=== PATIENT | female | born 1995 | race Two or more races ===

== ENCOUNTER 2023-05-22 09:41 | Observation (INO) | payer MEDICAID, OTHER ==
[~2023-05-22] VITALS: Ht 157.5 cm; Wt 61.2 kg
[2023-05-22 11:53] LABS: Urine Bacteria FEW /hpf (None Seen); Urine Blood Negative /uL (Negative); Urine Clarity HAZY (Clear); Urine Color Yellow (Yellow); Urine Protein, UAD 1+ (Negative); Urine Specific Gravity 1.025 (1.001-1.035); Urine Urobilinogen Normal (Negative); Urine WBC 4 /hpf (0 - 5)
[2023-05-22 12:04] LABS: Basophils # (auto) 0 10 ^3/uL (0-0.2); Eosinophils # (auto) 0.1 10 ^3/uL (0-0.8); Hemoglobin 10.9 g/dL (12.2-16.2); Monocytes # (auto) 0.4 10 ^3/uL (0-1.3); Neutrophils # (auto) 5.2 10 ^3/uL (1.6-8.6)
[2023-05-22 12:05] LABS: Basophils % (auto) 0.4 % (0.0-2.0); Eosinophils % (auto) 0.8 % (0.0-7.0); Hematocrit 34.1 % (36.0-46.0); Lymphocytes # (auto) 1.5 10 ^3/uL (0.4-5.4); Lymphocytes % (auto) 20.4 % (10.0-50.0); Mean Corpuscular Hemoglobin 26.4 pg (28.0-32.0); Mean Corpuscular Hgb Conc. 31.9 g/dL (32.0-36.0); Mean Corpuscular Volume 82.8 fL (80.0-100.0); Monocytes % (auto) 5.7 % (0.0-12.0); Neutrophils % (auto) 72.7 % (37.0-80.0); Nucleated Red Blood Cells % 0.2 %; Red Blood Cells 4.12 10^6/uL (4.0-5.20); Red Cell Distribution Width 17.3 % (11.8-14.3); White Blood Cell 7.2 10^3/uL (4.4-10.8)
[2023-05-22 12:22] LABS: Protein, Urine 84.6 mg/dL (0.0-11.9); Urine Protein/Creatinine Ratio 0.55
[2023-05-22 12:29] LABS: INR 0.9 (0.9-1.15); Partial Thromboplastin Time 30.5 SEC (24.5-34.5); Prothrombin Time 9.5 sec (9.3-11.8)
[2023-05-22 12:38] LABS: Albumin 2.5 g/dL (3.4-5.0); Calcium 7.9 mg/dL (8.5-10.1); Potassium 3.9 mmol/L (3.5-5.1)
[2023-05-22 12:43] LABS: BUN/Creatinine Ratio 17.2 (10.0-20.0); Bilirubin, Total 0.2 mg/dL (0.2-1.0); Total Protein 6.5 g/dL (6.4-8.2); Uric Acid 4.4 mg/dL (2.6-6.0)
== END 2023-05-22 13:05 | disposition home or self-care (01) ==
LOC: LDRP 09:41 → UNDOADMOB 09:41 → LDRP 09:43
PROVIDERS: ADMIT Obstetrics & Gynecology; ATTEND Obstetrics & Gynecology
DX: O48.0 Post-term pregnancy (principal); Z3A.40 40 weeks gestation of pregnancy; Z79.899 Other long term (current) drug therapy
CPT/HCPCS: 36415; 59025; 76818; 80053; 81001; 81002; 82570; 84156; 84550; 85025; 85379; 85610; 85730; 94760; G0378

== ENCOUNTER 2023-05-24 09:48 | Observation (INO) | payer MEDICAID ==
[2023-05-24] MEDS ORDERED: PREN-96 PO (10:43)
== END 2023-05-24 11:59 | disposition home or self-care (01) ==
LOC: LDRP 09:48
PROVIDERS: ADMIT Obstetrics & Gynecology; ATTEND Obstetrics & Gynecology
DX: O48.0 Post-term pregnancy (principal); Z3A.40 40 weeks gestation of pregnancy
CPT/HCPCS: 59025; 76818; 81002; G0378

== ENCOUNTER 2023-05-26 08:59 | Observation (INO) | payer MEDICAID ==
[~2023-05-26 08:59] MED LIST: PREN-96 PO
[2023-05-26 13:13] LABS: Basophils # (auto) 0 10 ^3/uL (0-0.2); Eosinophils # (auto) 0.1 10 ^3/uL (0-0.8); Eosinophils % (auto) 1.1 % (0.0-7.0); Hemoglobin 11.4 g/dL (12.2-16.2); Lymphocytes # (auto) 1.5 10 ^3/uL (0.4-5.4); Monocytes # (auto) 0.5 10 ^3/uL (0-1.3); Monocytes % (auto) 6.8 % (0.0-12.0)
[2023-05-26 13:14] LABS: Basophils % (auto) 0.6 % (0.0-2.0); Hematocrit 34.7 % (36.0-46.0); Lymphocytes % (auto) 22.4 % (10.0-50.0); Mean Corpuscular Hgb Conc. 32.8 g/dL (32.0-36.0); Mean Corpuscular Volume 82.3 fL (80.0-100.0); Neutrophils # (auto) 4.7 10 ^3/uL (1.6-8.6); Neutrophils % (auto) 69.1 % (37.0-80.0); Nucleated Red Blood Cells % 0.3 %; Red Blood Cells 4.22 10^6/uL (4.0-5.20); Red Cell Distribution Width 17.5 % (11.8-14.3); White Blood Cell 6.7 10^3/uL (4.4-10.8)
[2023-05-26 13:27] LABS: Urine Bacteria FEW /hpf (None Seen); Urine Blood Negative /uL (Negative); Urine Clarity Clear (Clear); Urine Color Yellow (Yellow); Urine Protein, UAD 1+ (Negative); Urine Specific Gravity 1.017 (1.001-1.035); Urine Urobilinogen Normal (Negative); Urine WBC 5 /hpf (0 - 5)
[2023-05-26 13:27] LABS: INR 0.89 (0.9-1.15); Partial Thromboplastin Time 30.2 SEC (24.5-34.5); Prothrombin Time 9.4 sec (9.3-11.8)
[2023-05-26 13:43] LABS: Albumin 2.6 g/dL (3.4-5.0); Potassium 4.1 mmol/L (3.5-5.1)
[2023-05-26 13:45] LABS: BUN/Creatinine Ratio 19.2 (10.0-20.0)
[2023-05-26 13:47] LABS: Bilirubin, Total 0.1 mg/dL (0.2-1.0); Total Protein 6.7 g/dL (6.4-8.2)
[2023-05-26 14:32] LABS: Barbiturate Scree,Urine NEGATIVE (NEGATIVE); Benzodiazephine Screen, Urine NEGATIVE (NEGATIVE); Cannabinoid Screen, Urine NEGATIVE (NEGATIVE); Cocaine Screen, Urine NEGATIVE (NEGATIVE); Opiate Scree,Urine NEGATIVE (NEGATIVE)
[2023-05-26 14:58] LABS: Alcohol, Urine < 3.0 mg/dL (0-10); Amphetamine Screen, Urine NEGATIVE (NEGATIVE); Phencyclidine Screen, Urine NEGATIVE (NEGATIVE)
[2023-05-26 15:15] LABS: Uric Acid 3.7 mg/dL (2.6-6.0)
[2023-05-26 16:57] LABS: Protein, Urine 57.5 mg/dL (0.0-11.9); Urine Protein/Creatinine Ratio 0.65
== END 2023-05-26 15:07 | disposition home or self-care (01) ==
LOC: UNDOADMOB 08:59 → LDRP 08:59
PROVIDERS: ADMIT Obstetrics & Gynecology; ATTEND Obstetrics & Gynecology
DX: O48.0 Post-term pregnancy (principal); Z3A.40 40 weeks gestation of pregnancy
CPT/HCPCS: 36415; 59025; 76818; 80053; 80307; 81001; 81002; 82570; 84156; 84550; 85025; 85610; 85730

== ENCOUNTER 2023-05-27 06:50 | Inpatient (IN) | payer MEDICAID ==
[~2023-05-27] VITALS: Ht 157.5 cm; Wt 72.6 kg
[2023-05-27] MEDS ORDERED: LIDOCAINE 2%HCL (LOCAL ANESTH.) INJ 20ML MDV IJ PRN (07:30)
[2023-05-27] MEDS ORDERED: WITCH HAZEL-GLYCERIN PAD TOP PRN (07:30)
[2023-05-27] MEDS ORDERED: PROMETHAZINE HCL 25 MG/ML 1ML IV PRN (07:30)
[2023-05-27] MEDS ORDERED: PROMETHAZINE HCL 25 MG/ML 1ML IM PRN (07:30)
[2023-05-27] MEDS ORDERED: DERMOPLAST 60ML BOTTLE TOP PRN (07:30)
[2023-05-27] MEDS ORDERED: PHISODERM TOP SOLN 240ML BTL TOP PRN (07:30)
[2023-05-27] MEDS ORDERED: miSOPROStol 50 MCG per PRE-CUT 1/2 TAB PO PRN (07:30)
[2023-05-27 07:54] LABS: Eosinophils # (auto) 0.1 10 ^3/uL (0-0.8); Eosinophils % (auto) 1.7 % (0.0-7.0); Mean Corpuscular Volume 81.9 fL (80.0-100.0); Monocytes # (auto) 0.4 10 ^3/uL (0-1.3); Neutrophils # (auto) 4.3 10 ^3/uL (1.6-8.6)
[2023-05-27 07:56] LABS: Basophils # (auto) 0 10 ^3/uL (0-0.2); Basophils % (auto) 0.4 % (0.0-2.0); Hematocrit 33.8 % (36.0-46.0); Hemoglobin 11.2 g/dL (12.2-16.2); Lymphocytes # (auto) 1.7 10 ^3/uL (0.4-5.4); Lymphocytes % (auto) 25.5 % (10.0-50.0); Mean Corpuscular Hemoglobin 27.2 pg (28.0-32.0); Mean Corpuscular Hgb Conc. 33.2 g/dL (32.0-36.0); Monocytes % (auto) 6.1 % (0.0-12.0); Neutrophils % (auto) 66.3 % (37.0-80.0); Nucleated Red Blood Cells % 0.1 %; Red Blood Cells 4.12 10^6/uL (4.0-5.20); Red Cell Distribution Width 17.3 % (11.8-14.3); White Blood Cell 6.5 10^3/uL (4.4-10.8)
[2023-05-27 08:08] LABS: INR 0.89 (0.9-1.15); Partial Thromboplastin Time 29.8 SEC (24.5-34.5); Prothrombin Time 9.4 sec (9.3-11.8)
[2023-05-27 08:11] LABS: Urine Bacteria NONE SEEN /hpf (None Seen); Urine Blood Negative /uL (Negative); Urine Clarity Clear (Clear); Urine Color Yellow (Yellow); Urine Protein, UAD 1+ (Negative); Urine Specific Gravity 1.019 (1.001-1.035); Urine Urobilinogen Normal (Negative); Urine WBC 1 /hpf (0 - 5)
[2023-05-27 08:14] LABS: Albumin 2.5 g/dL (3.4-5.0); Calcium 8.1 mg/dL (8.5-10.1); Potassium 3.9 mmol/L (3.5-5.1)
[2023-05-27 08:15] LABS: Alcohol, Urine < 3.0 mg/dL (0-10); Amphetamine Screen, Urine NEGATIVE (NEGATIVE); Barbiturate Scree,Urine NEGATIVE (NEGATIVE); Benzodiazephine Screen, Urine NEGATIVE (NEGATIVE); Cannabinoid Screen, Urine NEGATIVE (NEGATIVE); Cocaine Screen, Urine NEGATIVE (NEGATIVE); Opiate Scree,Urine NEGATIVE (NEGATIVE); Phencyclidine Screen, Urine NEGATIVE (NEGATIVE)
[2023-05-27 08:19] LABS: BUN/Creatinine Ratio 16.9 (10.0-20.0); Bilirubin, Total 0.2 mg/dL (0.2-1.0); Total Protein 6.4 g/dL (6.4-8.2)
[2023-05-27] MEDS: LACTATED RINGER'S 1,000 ML IV SCH ×2 (08:20→11:50)
[2023-05-27] MEDS ORDERED: LACT. RINGERS/OXYTOCIN 20UNITS 500 ML IV ONE ×2 (13:30→14:00)
[2023-05-27] MEDS ORDERED: LACT. RINGERS/OXYTOCIN 20UNITS 1,000 ML IV SCH (13:30)
[2023-05-27] MEDS ORDERED: ROPIVACAINE HCL 200 ML EPI SCH ×2 (15:00→15:30)
[2023-05-27] MEDS ORDERED: ePHEDrine SULFATE 50 MG/ML AMP IV ONE ×2 (15:00→15:30)
[2023-05-27] MEDS ORDERED: LACTATED RINGER'S 1,000 ML IV ONE (15:00)
[2023-05-27] MEDS ORDERED: NALOXONE HCL 0.4 MG/ML VIAL IV ONE ×2 (15:00→15:30)
[2023-05-27] MEDS ORDERED: fentaNYL CITRATE 100 MCG/2 ML VL IV ONE ×2 (15:00→15:30)
[2023-05-27] MEDS ORDERED: NALOXONE HCL 0.4 MG/ML VIAL ONE (15:03)
[2023-05-27] MEDS ORDERED: ePHEDrine SULFATE 50 MG/ML AMP ONE (15:03)
[2023-05-27] MEDS ORDERED: ROPIVACAINE HCL 200 ML ONE (15:03)
[2023-05-27] MEDS ORDERED: fentaNYL CITRATE 100 MCG/2 ML VL ONE (15:03)
[2023-05-27] MEDS ORDERED: ONDANSETRON ODT 4 MG TAB PO PRN (17:30)
[2023-05-27] MEDS ORDERED: IBUPROFEN 600 MG TAB PO PRN (17:30)
[2023-05-27] MEDS ORDERED: ACETAMINOPHEN 325 MG TAB PO PRN (17:30)
[2023-05-27 19:07] VITALS: BP_SYST 118; BP_SYST 131; BP_DIAS 59; BP_DIAS 61; PULSE 92; PULSE 93; RESP 18; TEMP 98.1; O2SAT 99
[2023-05-27 20:07] VITALS: BP 118/61; PULSE 92; RESP 18; TEMP 98.1; O2SAT 99
[2023-05-27] MEDS ORDERED: DOCUSATE SOD 100 MG CAP PO SCH (22:00)
[2023-05-27 23:20] VITALS: BP 112/64; PULSE 92; RESP 18; TEMP 98.1; O2SAT 100
[2023-05-28 03:30] VITALS: BP 124/65; PULSE 95; RESP 18; TEMP 98; O2SAT 100
[2023-05-28] MEDS ORDERED: PREN-96 PO (04:39)
[2023-05-28] MEDS ORDERED: ACET-1882 PO (04:39)
[2023-05-28] MEDS ORDERED: DOCU-265 PO (04:39)
[2023-05-28] MEDS ORDERED: IBU600T PO (04:39)
[2023-05-28 06:06] LABS: RPR Non Reactive (Non Reactive)
[2023-05-28 07:00] VITALS: BP 129/79; PULSE 83; RESP 16; TEMP 98.6; O2SAT 98
[2023-05-28 07:08] LABS: Eosinophils # (auto) 0.1 10 ^3/uL (0-0.8); Hematocrit 32.4 % (36.0-46.0); Hemoglobin 10.5 g/dL (12.2-16.2); Mean Corpuscular Hemoglobin 26.8 pg (28.0-32.0); Mean Corpuscular Hgb Conc. 32.3 g/dL (32.0-36.0); Monocytes # (auto) 0.6 10 ^3/uL (0-1.3); Neutrophils % (auto) 75.3 % (37.0-80.0); Nucleated Red Blood Cells % 0.1 %; White Blood Cell 10.6 10^3/uL (4.4-10.8)
[2023-05-28 07:12] LABS: Basophils # (auto) 0 10 ^3/uL (0-0.2); Basophils % (auto) 0.4 % (0.0-2.0); Eosinophils % (auto) 0.9 % (0.0-7.0); Lymphocytes # (auto) 1.9 10 ^3/uL (0.4-5.4); Lymphocytes % (auto) 17.6 % (10.0-50.0); Monocytes % (auto) 5.8 % (0.0-12.0); Red Cell Distribution Width 17.9 % (11.8-14.3)
[2023-05-28 11:00] VITALS: BP 94/64; PULSE 72; RESP 18; TEMP 98.5; O2SAT 99
[2023-05-28 15:00] VITALS: BP 124/70; PULSE 68; RESP 16; TEMP 98.7; O2SAT 98
[2023-05-28] MEDS ORDERED: FER325T PO (15:42)
[2023-05-28] MEDS ORDERED: ASCO500T11 PO (15:42)
[2023-05-28 19:00] VITALS: BP 124/84; PULSE 101; RESP 16; TEMP 98.8; O2SAT 97
[2023-05-28] MEDS ORDERED: TETANUS-DIPTH-ACEL PERTUSSIS 0.5ML SYR Tdap IM ONE (22:00)
[2023-05-28 22:32] VITALS: BP 118/80; PULSE 96; RESP 16; TEMP 98.6; O2SAT 99
[2023-05-29 20:06] LABS: Treponema pallidum Ab (FTA-Ab) Non Reactive (Non Reactive)
== END 2023-05-28 22:32 | disposition home or self-care (01) | DRG 560 ==
LOC: LDRP 06:50
PROVIDERS: ADMIT Obstetrics & Gynecology; ATTEND Obstetrics & Gynecology
PROC: 10E0XZZ Delivery of Products of Conception, External Approach (ICD-10-PCS; principal; 2023-05-27)
PROC: 0KQM0ZZ Repair Perineum Muscle, Open Approach (ICD-10-PCS; 2023-05-27)
PROC: 3E0R3BZ Introduction of Anesthetic Agent into Spinal Canal, Percutaneous Approach (ICD-10-PCS; 2023-05-27)
PROC: 00HU33Z Insertion of Infusion Device into Spinal Canal, Percutaneous Approach (ICD-10-PCS; 2023-05-27)
DX: O48.0 Post-term pregnancy (principal); Z37.0 Single live birth; O70.1 Second degree perineal laceration during delivery; Z3A.40 40 weeks gestation of pregnancy; O90.81 Anemia of the puerperium
CPT/HCPCS: 36415; 59025; 59409; 62282; 76818; 80053; 80307; 81001; 81002; 82570; 84156; 84550; 85025; 85610; 85730; 86592; 86850; 86900; 86901; 90715; 94760; 96360; 96361; 96365; 96366; 96372; G0378; J2590